=== PATIENT | female | born 1965 | race Caucasian/White ===

== ENCOUNTER 2017-02-26 03:44 | Emergency (ER) | payer BC, OTHER ==
[~2017-02-26] VITALS: Ht 157.5 cm; Wt 88.6 kg
[2017-02-26 03:53] VITALS: Ht 157.5 cm; Wt 88.6 kg
--- NOTE | 2017-02-26 04:17 | ERD ---
ER Documentation Chief Complaint Chief Complaint NEAR SYNCOPAL EPISODE, GEN. BODY WEAKNESS. "CODE GREEN" HPI The patient is a 51-year-old female, presenting to the ER because she complains of abdominal discomfort though lunch and had a near syncopal episode, twisted her right ankle. She had similar symptoms previously. She denies neck pain, chest pain, dyspnea, complains of nausea but no vomiting, dysuria, diarrhea, constipation, denies tongue bite, fecal/urinary incontinence. 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 Medications Home Meds Active Scripts Tramadol HCl (Tramadol HCl) 50 Mg Tablet, 50 MG PO Q4 Y for PAIN, #20 TAB Prov:ADRYAN RIVERS MD 02/26/17 Allergies Allergies: Coded Allergies: No Known Allergy (Unverified , 09/02/11) PMhx/Soc History of Surgery: Yes (TUBAL LIGATION, KIDNEY STONE) Anesthesia Reaction: No Hx Neurological Disorder: No Hx Respiratory Disorders: No Hx Cardiac Disorders: Yes (HTN) Hx Psychiatric Problems: No Hx Miscellaneous Medical Probl: No Hx Alcohol Use: No Hx Substance Use: No Hx Tobacco Use: No Smoking Status: Never smoker Physical Exam Vitals Vital Signs Date Time Temp Pulse Resp B/P Pulse Ox O2 Delivery O2 Flow Rate FiO2 02/26/17 05:38 81 16 106/67 98 Room Air 02/26/17 03:53 98.2 85 20 99/86 99 Physical Exam Const: No acute distress. Head: Atraumatic. Eyes: Normal Conjunctiva. ENT: Normal External Ears, Nose and Mouth. Neck: Full range of motion. No meningismus. Resp: Clear to auscultation bilaterally. Cardio: Regular rate and rhythm. Abd: Soft, non distended, normal bowel sounds, non tender. Skin: No petechiae or rashes. Back: No midline or flank tenderness. Ext: Right ankle is edematous and tender at the lateral malleolus, no calf tenderness Neur: Awake and alert. No focal deficit Psych: Normal Mood and Affect. Result Diagram: 02/26/17 0353 02/26/17 0353 Results 24 hrs Laboratory Tests Test 02/26/17 03:49 02/26/17 03:53 Bedside Glucose 122mg/dL White Blood Count 11.510^3/ul Red Blood Count 4.5010^6/ul Hemoglobin 12.3g/dl Hematocrit 37.5% Mean Corpuscular Volume 83.3fl Mean Corpuscular Hemoglobin 27.3pg Mean Corpuscular Hemoglobin Concent 32.8g/dl Red Cell Distribution Width 16.5% Platelet Count 78546^3/UL Mean Platelet Volume 11.7fl Neutrophils % 55.2% Lymphocytes % 34.3% Monocytes % 8.9% Eosinophils % 1.0% Basophils % 0.3% Nucleated Red Blood Cells % 0.0/100WBC Neutrophils # 6.410^3/ul Lymphocytes # 4.010^3/ul Monocytes # 1.010^3/ul Eosinophils # 0.110^3/ul Basophils # 0.010^3/ul Nucleated Red Blood Cells # 0.010^3/ul Sodium Level 143mmol/L Potassium Level 3.5mmol/L Chloride Level 100mmol/L Carbon Dioxide Level 32mmol/L Anion Gap 15 Blood Urea Nitrogen 17mg/dl Creatinine 0.85mg/dl Glucose Level 129mg/dl Calcium Level 9.9mg/dl Total Bilirubin 0.2mg/dl Direct Bilirubin 0.00mg/dl Indirect Bilirubin 0.2mg/dl Aspartate Amino Transf (AST/SGOT) 24IU/L Alanine Aminotransferase (ALT/SGPT) 37IU/L Alkaline Phosphatase 87IU/L Total Protein 8.1g/dl Albumin 4.3g/dl Globulin 3.80g/dl Albumin/Globulin Ratio 1.13 Current Medications Medications (Trade) Dose Ordered Sig/Shakila Route PRN Reason Start Time Stop Time Status Last Admin Dose Admin Ondansetron HCl 4 mg 4 mg ONCE STAT IV 02/26/17 04:31 02/26/17 04:35 DC 02/26/17 04:41 Sodium Chloride (NS) 1,000 ml @ 1,000 mls/hr Q1H ONCE IV 02/26/17 05:00 02/26/17 05:59 02/26/17 04:41 Tramadol HCl (Ultram) 50 mg ONCE ONCE PO 02/26/17 06:00 02/26/17 06:01 02/26/17 05:42 Procedures/MDM EKG: Read by emergency physician Rate/Rhythm: Normal Sinus Rhythm 84 beats/min QRS, ST, T-waves: No ST elevation, no T inversion, artifacts Impression: Otherwise normal EKG Patient Name Roxanne Coyne Study Date 02/26/2017 4:52 AM Patient 1965 Accession No. [id number] Referring Physician Adryan Rivers CLINICAL INDICATION: Pain. TECHNIQUE: Three views including AP, lateral and oblique views were performed. COMPARISON: None. FINDINGS: There is no fracture, dislocation or bone destruction. The ankle mortise is within normal limits. Bone mineralization is within normal limits. There is no radiopaque foreign body or abnormal calcification. There is a calcaneal spur. There is soft tissue swelling over the lateral malleolus. IMPRESSION: No evidence of fracture. Lateral soft tissue swelling. Signed By: Yakov Lyles M.d 02/26/2017 4:59:29 AM Patient Name Roxanne Coyne Study Date 02/26/2017 4:56 AM Patient 1965 Accession No. [id number] Referring Physician Adryan Rivers (Rosemary) CLINICAL INDICATION: Abdominal pain. TECHNIQUE: Multiple real-time images were acquired of the patient's right upper abdomen utilizing a high resolution transducer. COMPARISON: None FINDINGS: The liver demonstrates increased echogenicity and size measuring 19.2 cm. There is no focal mass or intrahepatic biliary ductal dilatation. The portal vein is patent. The gallbladder is not distended. No gallstones are identified. There is no pericholecystic fluid or gallbladder wall thickening. The common bile duct measures 4.7 mm in maximal dimension. The pancreas is obscured by overlying bowel gas. No free fluid is identified. The right kidney is normal size and echogenicity measuring 12.2 cm. There is no focal renal mass or echogenic calculus identified. There is no obstructive uropathy. IMPRESSION: Enlarged liver with fatty infiltration. Pancreas obscured by overlying bowel gas. Signed By: Yakov Lyles M.d 02/26/2017 5:08:58 AM MEDICAL MAKING DECISION: The patient is a 51-year-old female, presenting with acute near syncope, acute right ankle pain. She was treated with Zofran 4 mg IV for nausea, 1 L normal saline for clinical dehydration, a strength to the right ankle, ultrasound p.o. for pain with good response The differential diagnoses considered include but are not limited to bradyarrhythmia, tachyarrhythmias, aortic outflow obstruction, neurogenic including subarachnoid hemorrhage, orthostatic hypotension and all of its causes , hypoglycemia, dysautonomia, medications, fracture, internal derrangement Departure Diagnosis: Primary Impression: Near syncope Additional Impression: Ankle pain, right Condition: Good Comments She was discharged with Ultram I discussed the findings with the patient. I advised the patient to follow-up with the primary physician in about 1-2 days, sooner if needed and return if any concern, advised that she would need a MRI if the pain is persistent. Disclaimer: Inadvertent spelling and grammatical errors are likely due to EHR/ dictation software use and do not reflect on the overall quality of patient care. Also, please note that the electronic time recorded on this note does not necessarily reflect the actual time of the patient encounter. ADRYAN RIVERS MD Feb 26, 2017 04:17
[2017-02-26] MEDS ORDERED: ONDANSETRON 4 MG INJ IV STA (04:31)
[2017-02-26] MEDS ORDERED: SOD CHLORIDE 0.9% 1,000 ML IV ONE (05:00)
[2017-02-26 05:08] LABS: BASOPHILS % 0.3 % (0.0-2.0); EOSINOPHILS # 0.1 10^3/ul (0.0-0.5); HEMATOCRIT 37.5 % (37.0-47.0); HEMOGLOBIN 12.3 g/dl (12.0-16.0); LYMPHOCYTES % 34.3 % (15.0-51.0); MEAN CORPUSCULAR HEMOGLOBIN 27.3 pg (29.0-33.0); MEAN CORPUSCULAR HGB CONC 32.8 g/dl (32.0-37.0); MEAN CORPUSCULAR VOLUME 83.3 fl (82.0-101.0); MEAN PLATELET VOLUME 11.7 fl (7.4-10.4); MONOCYTES % 8.9 % (0.0-11.0); NEUTROPHIL # 6.4 10^3/ul (1.6-7.5); NEUTROPHILS % 55.2 % (39.0-77.0); PLATELET COUNT 319 10^3/UL (140-415); RED CELL DISTRIBUTION WIDTH 16.5 % (11.5-14.5); WHITE BLOOD COUNT 11.5 10^3/ul (4.8-10.8)
[2017-02-26 05:13] LABS: ALBUMIN 4.3 g/dl (3.3-4.9); ALBUMIN/GLOBULIN RATIO 1.13; BILIRUBIN,INDIRECT 0.2 mg/dl (0-1.1); BILIRUBIN,TOTAL 0.2 mg/dl (0.2-1.3); CALCIUM 9.9 mg/dl (8.4-10.2); CREATININE 0.85 mg/dl (0.44-1.00); POTASSIUM 3.5 mmol/L (3.5-5.1); TOTAL PROTEIN 8.1 g/dl (6.1-8.1)
[2017-02-26 05:38] VITALS: BP 106/67; PULSE 81; RESP 16
[2017-02-26] MEDS ORDERED: TRAM50TA2 PO (05:38)
[2017-02-26] MEDS ORDERED: traMADol 50 MG TAB PO ONE (06:00)
--- NOTE | 2017-02-26 06:54 | RADRPT ---
PROCEDURE: Right ankle. CLINICAL INDICATION: Pain. TECHNIQUE: Three views including AP, lateral and oblique views were performed. COMPARISON: None. FINDINGS: There is no fracture, dislocation or bone destruction. The ankle mortise is within normal limits. Bone mineralization is within normal limits. There is no radiopaque foreign body or abnormal calcif ication. There is a calcaneal spur. There is soft tissue swelling over the lateral malleolus. IMPRESSION: No evidence of fracture. Lateral soft tissue swelling. .Yakov Lyles MD, MD Date Time Electronically viewed and signed by .Yakov Lyles MD, on 02/26/2017 04:59 .T/
--- NOTE | 2017-02-26 06:54 | RADRPT ---
PROCEDURE: Abdominal ultrasound, limited. CLINICAL INDICATION: Abdominal pain. TECHNIQUE: Multiple real-time images were acquired of the patient's right upper abdomen utilizing a high resolution transducer. COMPARISON: None FINDINGS: The liver demonstrates increased echogenicity and size measuring 19.2 cm. There is no focal mass or intrahepatic biliary ductal dilatation. The portal vein is patent. The gallbladder is not distend ed. No gallstones are identified. There is no pericholecystic fluid or gallbladder wall thickening . The common bile duct measures 4.7 mm in maximal dimension. The pancreas is obscured by overlying bowel gas. No free fluid is identified. The right kidney is normal size and echogenicity measuring 12.2 cm. There is no focal renal mass or echogenic calculus identified. There is no obstructive uropathy. IMPRESSION: Enlarged liver with fatty infiltration. Pancreas obscured by overlying bowel gas. .Yakov Lyles MD, MD Date Time Electronically viewed and signed by .Yakov Lyles MD, MD on 02/26/2017 05:08 .T/
== END 2017-02-26 05:56 | disposition home or self-care (01) ==
LOC: E/R 03:44
DX: R55 Syncope and collapse (principal); M25.571 Pain in right ankle and joints of right foot; I10 Essential (primary) hypertension
CPT/HCPCS: 36415; 73610; 76705; 80053; 82962; 85025; 93005; 96374; 99285; J2405; J7030

== ENCOUNTER 2018-01-16 21:28 | Emergency (ER) | END 2018-01-16 23:41 | disposition home or self-care (01) ==

== ENCOUNTER 2018-10-19 11:32 | Emergency (ER) | payer BC, OTHER ==
[~2018-10-19] VITALS: Ht 157.5 cm; Wt 70.0 kg
[~2018-10-19 11:32] MED LIST: IBUP-1542 PO; MECL12.574 PO; MELA3TAB17 PO; METO-335 PO; ONDA4TAB14 PO; TRAM50TA2 PO
[2018-10-19 11:38] VITALS: BP 214/126; PULSE 93; RESP 17; Ht 157.5 cm; Wt 70.0 kg
[2018-10-19] MEDS ORDERED: ENALAPRILAT 1.25 MG INJ IV ONE (12:30)
[2018-10-19] MEDS ORDERED: DIPHENHYDRAMINE 50 MG INJ IV ONE (12:30)
[2018-10-19] MEDS ORDERED: SOD CHLORIDE 0.9% 1,000 ML IV STA (12:30)
[2018-10-19] MEDS ORDERED: KETOROLAC 15 MG INJ IV STA (12:30)
--- NOTE | 2018-10-19 12:56 | ERD ---
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 HX OF VERTIGO HPI 52-year-old woman with history of recurrent dizziness/vertigo presents with episode of sudden dizziness, nausea, vomiting x2 while working. She states this attack feels similar to prior episodes and states usually a decongestant helps her symptoms. She also has a mild headache but denies slurred speech, no weakness in her arms or legs, no loss of consciousness, no blurry vision, no difficulty ambulating. Patient denies chest pain or shortness of breath. ROS All systems reviewed and are negative except as per history of present illness. Medications Home Meds Active Scripts Ondansetron (Ondansetron Odt) 4 Mg Tab.rapdis, 4 MG PO Q6H PRN for NAUSEA AND/OR VOMITING, #20 TAB Prov:CINTIA MARQUES MD 10/19/18 Meclizine Hcl* (Antivert*) 12.5 Mg Tab, 25 MG PO TID PRN for DIZZINESS, #20 TAB Prov:CINTIA MARQUES MD 10/19/18 Reported Medications Melatonin (Melatonin) 3 Mg Tablet.sa, 3 MG PO HS PRN for NEEDED, TAB.SA 10/19/18 Metoprolol Succinate* (Toprol XL*) 25 Mg Tab.sr.24h, 25 MG PO DAILY, #30 TAB 10/19/18 Discontinued Scripts Ibuprofen* (Motrin*) 600 Mg Tab, 600 MG PO Q6H PRN for PAIN AND OR ELEVATED TEMP, #30 TAB Prov:ILIANA FOURNIER NP 01/16/18 Tramadol HCl (Tramadol HCl) 50 Mg Tablet, 50 MG PO Q4 PRN for PAIN, #20 TAB Prov:MARIA A RIVERS MD 02/26/17 Allergies Allergies: Coded Allergies: No Known Allergy (Unverified , 10/19/18) PMhx/Soc Hypertension, vertigo History of Surgery: Yes (TUBAL LIGATION, KIDNEY STONE) Anesthesia Reaction: No Hx Neurological Disorder: No Hx Respiratory Disorders: No Hx Cardiac Disorders: Yes (HTN) Hx Psychiatric Problems: No Hx Miscellaneous Medical Probl: Yes (Vertigo) Hx Alcohol Use: No Hx Substance Use: No Hx Tobacco Use: No Smoking Status: Never smoker FmHx Family History: No diabetes Physical Exam Vitals Vital Signs Date Temp Pulse Resp B/P (MAP) Pulse Ox O2 O2 Flow FiO2 Time Delivery Rate 10/19/18 97.5 93 17 214/126 99 11:38 (155) Physical Exam GENERAL: Well-developed, well-nourished, well-hydrated, in no apparent distress, looks nontoxic in appearance HEENT: Moist mucous membranes, pink conjunctiva, no cervical spine tenderness or step-off deformities, no goiter, no jaundice or icterus, extraocular movements intact without pain. No submandibular induration, and no pharyngeal erythema NEURO: Alert and oriented 3, cranial nerves II through XII intact bilaterally, pupils equal round reactive to light, no focal deficits or facial asymmetry, sensation intact distally Strength 5/5 in upper and lower extremities bilaterally CARDIAC: Regular rate and rhythm, no murmurs rubs or gallops LUNGS: Clear bilaterally no wheezing crackles or stridor ABDOMEN: Soft nontender, no guarding, no rigidity, no rebound, no psoas sign no obturator sign. Normoactive bowel sounds SKIN: Warm and dry to touch, no abrasions, contusions, or hematomas, no lacerations, no ecchymosis, no target lesions, and without ulcers EXTREMITIES: No clubbing cyanosis or edema, calves are bilaterally symmetrical, no Homans sign, no popliteal cord sign. Distal pulses equal and bilateral PSYCH: Normal affect without agitation or irritability Result Diagram: 10/19/18 1253 10/19/18 1253 Results 24 hrs Laboratory Tests Test 10/19/18 12:53 White Blood Count 8.3 10^3/ul Red Blood Count 4.62 10^6/ul Hemoglobin 14.4 g/dl Hematocrit 42.1 % Mean Corpuscular Volume 91.1 fl Mean Corpuscular Hemoglobin 31.2 pg Mean Corpuscular Hemoglobin Concent 34.2 g/dl Red Cell Distribution Width 13.2 % Platelet Count 251 10^3/UL Mean Platelet Volume 11.0 fl Immature Granulocytes % 0.200 % Neutrophils % 69.2 % Lymphocytes % 22.4 % Monocytes % 6.8 % Eosinophils % 1.0 % Basophils % 0.4 % Nucleated Red Blood Cells % 0.0 /100WBC Immature Granulocytes # 0.020 10^3/ul Neutrophils # 5.8 10^3/ul Lymphocytes # 1.9 10^3/ul Monocytes # 0.6 10^3/ul Eosinophils # 0.1 10^3/ul Basophils # 0.0 10^3/ul Nucleated Red Blood Cells # 0.0 10^3/ul Urine Color YELLOW Urine Clarity SLIGHTLY CLOUDY Urine pH 6.0 Urine Specific Nolan 1.012 Urine Ketones NEGATIVE mg/dL Urine Nitrite NEGATIVE mg/dL Urine Bilirubin NEGATIVE mg/dL Urine Urobilinogen NEGATIVE mg/dL Urine Leukocyte Esterase NEGATIVE Jay/ul Urine Microscopic RBC 4 /HPF Urine Microscopic WBC 0 /HPF Urine Squamous Epithelial Cells FEW /HPF Urine Bacteria FEW /HPF Urine Hemoglobin 1+ mg/dL Urine Glucose NEGATIVE mg/dL Urine Total Protein 1+ mg/dl Sodium Level 143 mmol/L Potassium Level 3.6 mmol/L Chloride Level 102 mmol/L Carbon Dioxide Level 31 mmol/L Anion Gap 10 Blood Urea Nitrogen 12 mg/dl Creatinine 0.62 mg/dl Est Glomerular Filtrat Rate mL/min > 60 mL/min Glucose Level 106 mg/dl Calcium Level 9.7 mg/dl Total Bilirubin 0.5 mg/dl Direct Bilirubin 0.00 mg/dl Indirect Bilirubin 0.5 mg/dl Aspartate Amino Transf (AST/SGOT) 26 IU/L Alanine Aminotransferase (ALT/SGPT) 32 IU/L Alkaline Phosphatase 84 IU/L Troponin I < 0.012 ng/ml Total Protein 8.7 g/dl Albumin 5.1 g/dl Globulin 3.60 g/dl Albumin/Globulin Ratio 1.41 Lipase 86 U/L Current Medications Medications Dose Sig/Shakila Start Time Status Last (Trade) Ordered Route PRN Stop Time Admin Dose Reason Admin Sodium 1,000 ml @ Q1H STAT 10/19/18 DC 10/19/18 Chloride 1,000 mls/hr IV 12:30 12:53 10/19/18 13:29 Ketorolac 15 mg ONCE STAT 10/19/18 DC 10/19/18 Tromethamine IV 12:30 12:52 (Toradol) 10/19/18 12:31 25 mg ONCE ONCE 10/19/18 DC 10/19/18 Diphenhydrami IV 12:30 12:53 ne HCl 10/19/18 12:31 (Benadryl) Enalaprilat 1.25 mg ONCE ONCE 10/19/18 DC 10/19/18 (Vasotec Iv) IV 12:30 12:53 10/19/18 12:31 Ondansetron 4 mg ONCE STAT 10/19/18 DC 10/19/18 HCl (Zofran IV 13:09 13:20 Inj) 10/19/18 13:20 Ondansetron 4 mg STK-MED 10/19/18 DC HCl (Zofran ONCE .ROUTE 13:15 Inj) 10/19/18 13:16 Procedures/MDM IV line was established patient was placed on sales recruiter rhythm strip revealed a sinus rhythm at about 80 bpm with upright P and T waves. Patient was afebrile I administered 1 L normal saline IV and diphenhydramine 25 mg IV, and Zofran [address] scan of the brain was negative for acute bleed mass or shift. EKG performed, read by me reveals a normal sinus rhythm at 70 bpm, left axis deviation, narrow QRS complex, poor R wave progression precordial leads, no acute ST elevations or depressions. CBC and electrolytes are normal, liver function tests were normal, troponin was negative, urinalysis was negative for infection. I administered enalapril 1.25 mg IV for hypertension Patient's symptoms resolved and vital signs are normal at this time, she looks well will be discharged to follow-up with PMD. Differential diagnoses considered, included but not limited to acute coronary syndrome, pulmonary embolism, aortic dissection, abdominal aortic aneurysm, sepsis, stroke, meningitis, encephalitis, pneumonia, appendicitis, cholecystiti s, bowel obstruction, pyelonephritis, nephrolithiasis, cystitis, as well as metabolic, hematologic, and electrolyte abnormalities. As well as abscess, cellulitis, fractures, and dislocations. Patient feels much better at this time, and vital signs are normal, symptoms have improved. I did give strict instructions to return to the ED if symptoms continue or worsen, patient will otherwise follow-up with primary care physician. Patient understood instructions and agreed to plan. Disclaimer: Inadvertent spelling and grammatical errors are likely due to EHR/dictation software use and do not reflect on the overall quality of patient care. Also, please note that the electronic time recorded on this note does not necessarily reflect the actual time of the patient encounter. Departure Diagnosis: Primary Impression: Dizziness Additional Impression: Hypertension Hypertension type: essential hypertension Qualified Codes: I10 - Essential (primary) hypertension Condition: Good CINTIA MARQUES MD Oct 19, 2018 12:56
[2018-10-19] MEDS ORDERED: ONDANSETRON 4 MG INJ IV STA (13:09)
[2018-10-19] MEDS ORDERED: ONDANSETRON 4 MG INJ ONE (13:15)
== END 2018-10-20 06:21 | disposition home or self-care (01) ==
LOC: E/R 11:32
DX: I10 Essential (primary) hypertension (principal); R40.2142 Coma scale, eyes open, spontaneous, at arrival to emergency department; R40.2362 Coma scale, best motor response, obeys commands, at arrival to emergency department; R40.2252 Coma scale, best verbal response, oriented, at arrival to emergency department
CPT/HCPCS: 70450; 80053; 81001; 83690; 84484; 85025; 93005; J1200; J1885; J2405; J7030; 36415; 96374; 96375